=== PATIENT | female | born 1970 | race Caucasian/White ===

== ENCOUNTER → 2018-10-16 15:12 | Emergency (ER) | payer OTHER ==
[~2018-10-16 15:12] MED LIST: Al Hydrox/Mg Hydrox/Simet LIQ* 30 ML UDC PO ONE; Aspirin 81 mg CHEW TAB* 81 MG TAB.CHEW PO ONE; Famotidine TAB* 20 MG PO ONE; NS 0.9% 1000 ML** 1,000 ML IV ONE; Sucralfate TAB* 1 GM PO ONE
--- NOTE | 2018-10-16 15:49 | ED ---
Palpitations / Dysrhythmia - HPI Summary HPI Summary: Pt is a 47 y/o female who presents to the ED c/o palpitations. She was sent here by her PCP. Yesterday at 2:00 she was woken up with severe bilateral jaw pain with mild heartburn. Pt took ASA which relieved the pain. The entire episode lasted for one hour. Since the episode pt c/o generalized weakness, chest tightness, and irregular heartbeat. Pt also states she is constantly SOB, due to her asthma and recent bronchitis. She denies any fever, cough, nausea, or dizziness. FHx AFib, HTN, DM, and cardiac disease. Pt denies smoking or any hx of cardiac disease. - History of Current Complaint Chief Complaint: EDDysrhythmPalp Time Seen by Provider: 10/16/18 15:28 Hx Obtained From: Patient Onset/Duration: Sudden Onset, Lasting Days - 2:00 yesterday Timing: Constant Character: Irregular Aggravating: Nothing Alleviating: Nothing Associated Signs & Symptoms: Chest Pain, Shortness of Breath - Allergy/Home Medications Allergies/Adverse Reactions: Allergies Allergy/AdvReac Type Severity Reaction Status Date / Time peanut oil Allergy Difficulty Verified 10/16/18 15:19 Breathing/Wheezing PMH/Surg Hx/FS Hx/Imm Hx Endocrine/Hematology History: Denies: Hx Diabetes Cardiovascular History: Denies: Hx Coronary Artery Disease Respiratory History: Reports: Hx Asthma - Cancer History Hx Chemotherapy: No Hx Radiation Therapy: No Infectious Disease History: No Infectious Disease History: Denies: Traveled Outside the [place] in Last 30 Days - Family History Known Family History: Positive: Cardiac Disease - AFib, Hypertension, Diabetes - Social History Alcohol Use: None Hx Substance Use: No Substance Use Type: Reports: None Hx Tobacco Use: No Smoking Status (MU): Never Smoked Tobacco Review of Systems Positive: Other - generalized weakness. Negative: Fever Positive: Palpitations, Chest Pain - tightness Positive: Shortness Of Breath - asthma. Negative: Cough Positive: Other - heartburn. Negative: Nausea Positive: Other - jaw pain Neurological: Other - NEGATIVE: dizziness All Other Systems Reviewed And Are Negative: Yes Physical Exam - Summary Physical Exam Summary: Appearance: Well appearing, no pain distress Skin: warm, dry, reflects adequate perfusion Head/face: normal Eyes: EOMI, ESTELLE ENT: mucous membranes moist, no nasal discharge, no sinus tenderness Neck: supple, non-tender, no thyromegaly Respiratory: CTA, breath sounds present Cardiovascular: RRR, pulses symmetrical, no LE edema Abdomen: non-tender, soft Bowel Sounds: present Musculoskeletal: normal, strength/ROM intact Neuro: normal, sensory motor intact, A&Ox3 Triage Information Reviewed: Yes Vital Signs On Initial Exam: Initial Vitals Temp Pulse Resp BP Pulse Ox 98.5 F 96 15 117/78 99 10/16/18 15:16 10/16/18 15:16 10/16/18 15:16 10/16/18 15:16 10/16/18 15:16 Vital Signs Reviewed: Yes Diagnostics - Vital Signs Vital Signs Temp Pulse Resp BP Pulse Ox 10/16/18 15:45 100 10/16/18 15:35 81 20 133/69 98 10/16/18 15:16 98.5 F 96 15 117/78 99 - Laboratory Result Diagrams: 10/16/18 15:50 10/16/18 15:50 Lab Statement: Any lab studies that have been ordered have been reviewed, and results considered in the medical decision making process. - Radiology CXR Radiology Interpretation Completed By: Radiologist Summary of Radiographic Findings: No radiographic evidence for acute cardiopulmonary abnormality on this. portable chest x-ray. ED physician reviewed radiology report. - EKG 15:22 Cardiac Rate: NL - 78 bpm EKG Rhythm: Sinus Rhythm ST Segment: Normal Summary of EKG Findings: Nl axis, nl intervals Re-Evaluation - Re-Evaluation First Eval Re-Evaluation Time: 16:27 Change: Unchanged Comment: Pt is still feeling irregularities. Course/Dx - Course Course Of Treatment: Nurse's notes reviewed. Patient with a feeling of palpitation and malaise. Laboratories are all within normal limits aside from her TSH which is low. They had been wondering if her medication had needed to be titrated. She will be taken from 75 g down to 50 g of Synthroid. She was feeling much better here with IV fluids, GI treatments. We'll continue Pepcid. No sign of thyrotoxicosis, ectopy or arrhythmia. - Diagnoses Differential Diagnosis/HQI/PQRI: Positive: Other - Ectopy, arrhythmia, GI cause , anemia Provider Diagnoses: Palpitations, Hyperthyroidism, Adverse effects of medication Discharge - Sign-Out/Discharge Documenting (check all that apply): Patient Departure - Discharge Patient Received Moderate/Deep Sedation with Procedure: No - Discharge Plan Condition: Improved Disposition: HOME Prescriptions: Famotidine TAB* [Pepcid 20 MG TAB*] 20 mg PO BID #20 tab Levothyroxine TAB* [Synthroid TAB*] 50 mcg PO DAILY #30 tab Patient Education Materials: Hyperthyroidism (ED) Referrals: Bela Herrera MD [Primary Care Provider] - Additional Instructions: discontinue levothyroxine 75 g. Start levothyroxine 50 g. Call your doctor first thing in the morning to schedule prompt follow-up. HOLD your thyroid medication today. You will need repeat testing of your thyroid hormone. Return if worse, new symptoms or other concerns. - Billing Disposition and Condition Condition: IMPROVED Disposition: Home - Attestation Statements Document Initiated by [place]: Yes Documenting Scribe: Jocelyn Strong Provider For Whom Juana is Documenting (Include Credential): Campbell Ramsey MD Scribe Attestation: Jocelyn Quintanilla, scribed for Campbell Ramsey MD on 10/16/18 at 1824. Scribe Documentation Reviewed: Yes Provider Attestation: The documentation as recorded by the Jocelyn beaver accurately reflects the service I personally performed and the decisions made by , Campbell Ramsey MD Status of Scribe Document: Viewed
[2018-10-16 16:01] LABS: ABS Basophils 0 10^3/ul (0-0.2); ABS Eosinophils 0.2 10^3/ul (0-0.6); ABS Lymphocytes 1.4 10^3/ul (1.0-4.8); ABS Monocytes 0.3 10^3/ul (0-0.8); ABS Neutrophils 3.8 10^3/ul (1.5-7.7); ABS Nucleated RBC 0 10^3/ul; Hematocrit 41 % (35-47); Lymphocyte % 23.6 %; Mean Corpuscular HGB Conc 34 g/dl (31-36); Mean Corpuscular Hemoglobin 31 pg (27-31); Mean Corpuscular Volume 91 fL (80-97); Mean Platelet Volume 8.2 fL (7.4-10.4); Nucleated Red Blood Cells % 0; Platelet Count 190 10^3/ul (150-450); Red Blood Count 4.52 10^6/ul (4.00-5.40); Red Cell Distribution Width 14 % (10.5-15); White Blood Count 5.8 10^3/ul (3.5-10.8)
[2018-10-16 16:20] LABS: Albumin 4.4 g/dL (3.2-5.2); Albumin/Globulin Ratio 1.9 (1-3); BUN/Creatinine Ratio 24.4 (8-20); Calcium 9.3 mg/dL (8.6-10.3); EGFR African American 85.6 (>60); EGFR Non-African American 70.7 (>60); Globulin 2.3 g/dL (2-4); Potassium 4.1 mmol/L (3.5-5.0); Total Bilirubin 0.4 mg/dL (0.2-1.0); Total Protein 6.7 g/dL (6.4-8.9)
[2018-10-16 16:25] LABS: INR 0.97 (0.77-1.02)
--- OUTSIDE RECORDS SUMMARY | 2018-10-16 16:25 | XMS REPORT | Continuity of Care Document ---
:1970 External Reference #:[id number] Author Name Branden Shearer, OD Address [address] [facility] [place] [address] Care Team Providers Name Role Phone Terence Kennedy MD Primary Care Physician Unavailable Payers Type Date Identification Numbers Payment Provider Subscriber Policy Number: [id number] [employer] Pos Steve De La Cruz PayID: [id number] [address] [place] [address] Advance Directives Description No Information Available Problems Date Description Provider Status Onset: 04/22/2015 Ocular hypertension Raymundo Irwin M.D. Active Onset: 04/08/2015 Acquired stenosis of nasolacrimal duct Branden Sanchez O.D. Active Family History Date Family Member(s) Problem(s) Comments General Cataract General Glasses General Diabetes General Heart Disease Father due to Cancer () Father Cancer Father Diabetes Father High BP Mother High BP Mother Diabetes Mother Afib Social History Type Date Description Comments Sex Unknown ETOH Use Occasionally consumes alcohol Tobacco Use Start: Unknown Patient has never smoked Smoking Status Reviewed: 09/19/18 Patient has never smoked Allergies, Adverse Reactions, Alerts Date Description Reaction Status Severity Comments 04/08/2015 Peanut Active 04/08/2015 Peanut-containing Drug Products Active 04/08/2015 Seasonal Active 04/30/2015 Prednisolone Active steroid responder Medications Medication Date Status Form Strength Qnty SIG Indications Ordering Provider Synthroid Active Tablets 88mcg Unknown 00 Cytomel Active Tablets 5mcg three Unknown 00 times daily Tobramycin-Dex 04/08/20 Hx Suspension 0.3-0.1% 10ml 1 drop 375.56 Branden amethasone 15 - three Daniel, 04/30/20 times a O.D. 15 day left eye for two weeks Immunizations Description No Information Available Vital Signs Date Vital Result Comment 08/02/2018 9:33am Intraocular Pressure Right Eye 23 mmHg Intraocular Pressure Left Eye 24 mmHg Cornea Thickness Left Eye 522 m Cornea Thickness Right Eye 513 m Pachymetry adjusted IOP Right Eye +1 Pachymetry adjusted IOP Left Eye +2 04/30/2015 11:37am Intraocular Pressure Right Eye 19 mmHg Intraocular Pressure Left Eye 20 mmHg 04/22/2015 4:03pm Intraocular Pressure Right Eye 20 mmHg Intraocular Pressure Left Eye 33 mmHg 04/08/2015 9:27am Intraocular Pressure Right Eye 18 mmHg Intraocular Pressure Left Eye 18 mmHg Results Description No Information Available Procedures Date Code Description Status 08/02/2018 62243 Fundus Photography W/Interpretation & Report Completed 08/02/2018 97726 Refraction Completed 08/02/2018 50013 Eye Exam Est Intermediate Completed 08/02/2018 26321 Corneal Pachymetry, Unilateral/Bilateral Completed 04/08/2015 04840 Eye Exam New Intermediate Completed Encounters Type Date Location Provider Dx Diagnosis Office Visit 04/30/2015 Main Office Branden Sanchez, 375.56 Stenosis Of 11:15a O.D. Nasolacrimal Duct Acquired Office Visit 04/22/2015 Main Office Raymundo Irwin, 365.04 Glaucoma Hypertension 3:30p M.D. Ocular Plan of Treatment 09/19/2018 - Branden Shearer, ODH52.13 Myopia, bilateralFollow up:yearly full, sooner PRN
--- OUTSIDE RECORDS SUMMARY | 2018-10-16 16:25 | XMS REPORT | Continuity of Care Document ---
:1970 External Reference #:[id number] Author Name Branden Shearer, OD Address [address] [place] [address] Care Team Providers Name Role Phone Terence Kennedy MD Primary Care Physician Unavailable Payers Type Date Identification Numbers Payment Provider Subscriber Policy Number: [id number] [employer] Steve De La Cruz PayID: [id number] [address] [place] [address] Advance Directives Description No Information Available Problems [...] Available Procedures Date Code Description Status 08/02/2018 88941 Fundus Photography W/Interpretation & Report Completed 08/02/2018 35988 Refraction Completed 08/02/2018 36843 Eye Exam Est Intermediate Completed 08/02/2018 25394 Corneal Pachymetry, Unilateral/Bilateral Completed 04/08/2015 72534 Eye Exam New Intermediate Completed Encounters Type Date Location Provider Dx Diagnosis Office Visit 04/30/2015 Main Office Branden Sanchez, 375.56 Stenosis Of 11:15a O.D. Nasolacrimal Duct Acquired Office Visit 04/22/2015 Main Office Raymundo Irwin, 365.04 Glaucoma Hypertension 3:30p M.D. Ocular Plan of Treatment 08/02/2018 - Branden Shearer, ODH40.053 Ocular hypertension, bilateralFollow up: yearly full sooner PRNH52.13 Myopia, bilateralFollow up:yearly full sooner PRN
[2018-10-16 16:34] LABS: TSH (Thyroid Stimulating Horm) 0.1 mcIU/mL (0.34-5.60)
[2018-10-16 16:55] VITALS: BP 105/70
== END | disposition home or self-care (01) ==
LOC: ED 15:12
DX: R00.2 Palpitations (principal); R06.02 Shortness of breath; R53.81 Other malaise; E05.90 Thyrotoxicosis, unspecified without thyrotoxic crisis or storm; T38.1X5A Adverse effect of thyroid hormones and substitutes, initial encounter; Y92.9 Unspecified place or not applicable
CPT/HCPCS: 36415; 71045; 80053; 83605; 84443; 84484; 85025; 85379; 85610; 93005; 96360; 99283; A9270-GY